=== PATIENT | female | born 1970 | race Caucasian/White ===

== ENCOUNTER 2017-07-26 07:33 | Day surgery (SDC) | payer OTHER ==
[~2017-07-26] VITALS: Ht 175.3 cm; Wt 79.0 kg
[2017-07-26] MEDS ORDERED: IOHEXOL 350 MG/ML 50 ML BTL (for Cath Lab) OTHER ONE (07:34)
[2017-07-26] MEDS ORDERED: LEVE500T8 PO (08:03)
[2017-07-26] MEDS ORDERED: PANT40TA3 PO (08:03)
[2017-07-26] MEDS ORDERED: LINA290C PO (08:03)
[2017-07-26] MEDS ORDERED: MULTTAB67 PO (08:03)
[2017-07-26] MEDS ORDERED: DULO1CAP3 PO (08:03)
[2017-07-26] MEDS ORDERED: DIVA500T PO (08:03)
[2017-07-26] MEDS ORDERED: AMLO5TAB2 PO (08:03)
[2017-07-26] MEDS ORDERED: HYDR-755 PO (08:03)
[2017-07-26] MEDS ORDERED: SPIR25TA PO (08:03)
[2017-07-26] MEDS ORDERED: UMEC1INH INH (08:03)
[2017-07-26] MEDS ORDERED: BUSP10TA PO (08:03)
[2017-07-26] MEDS ORDERED: METO25TA3 PO (08:03)
[2017-07-26] MEDS ORDERED: BACL10TA PO (08:03)
[2017-07-26] MEDS ORDERED: FLUO40CA PO (08:03)
[2017-07-26] MEDS ORDERED: GABA600T PO (08:03)
[2017-07-26] MEDS ORDERED: TRAZ50TA12 PO (08:03)
[2017-07-26 08:20] VITALS: BP 106/69; PULSE 67; RESP 18; TEMP 98.2; O2SAT 96
[2017-07-26 08:26] LABS: AUTOMATED NEUTROPHIL # 1.9 TH/MM3 (1.8-7.7); BASOPHIL % 0.4 % (0.0-2.0); EOSINOPHIL # 0.3 TH/MM3 (0-0.4); EOSINOPHIL % 4.6 % (0.0-4.0); HEMATOCRIT 39.7 % (35.0-46.0); HEMO FLAGS DIFF FINAL; LYMPH % 54.2 % (9.0-44.0); LYMPHOCYTE # 3.2 TH/MM3 (1.0-4.8); MEAN CELL VOLUME 93.2 FL (80.0-100.0); MEAN CORPUSCULAR HEMOGLOBIN 31.5 PG (27.0-34.0); MEAN CORPUSCULAR HGB CONC 33.8 % (32.0-36.0); MONO % 8.4 % (0.0-8.0); NEUT % 32.4 % (16.0-70.0); PLATELET COUNT 203 TH/MM3 (150-450); RED BLOOD COUNT 4.26 MIL/MM3 (4.00-5.30); RED CELL DISTRIBUTION WIDTH 13.3 % (11.6-17.2)
[2017-07-26 08:34] LABS: APTT (PATIENT) 28.2 SEC (24.3-30.1); PROTHROMBIN TIME - PATIENT 10.5 SEC (9.8-11.6)
[2017-07-26 08:38] LABS: BICARBONATE 30.7 MEQ/L (21.0-32.0)
[2017-07-26] MEDS ORDERED: HEPARIN-NS/PF INJ 1,000 ML ONE (10:43)
[2017-07-26] MEDS ORDERED: MIDAZOLAM HCL 2 MG/2 ML VIAL ONE (10:43)
--- NOTE | 2017-07-26 11:34 | CATHPROC ---
Patient Name: CANDIDO HAWTHORNE Study #: [id number] Initial MD: Hugh Bar Date of : 1970 Study Date: 07/26/2017 Cardiac Catheterization Report 07/26/2017 11:33:48 AM Financial #: [id number] 1 of 8 Patient Name: CANDIDO HAWTHORNE Study #: [id number] Initial MD: Hugh Bar Date of : 1970 Study Date: 07/26/2017 Entire Case Report Patient Information Patient Name CANDIDO HAWTHORNE Date of 1970 Age 47 years Financial # [id number] Gender F AlternateID Lab Number 3 Room Number DC09 Height (in) 69.0 Height (cm) 175.2 BSA 1.95 Weight (lbs) 173.8 Weight (kg) 79.0 Patient Address/Phone Number Home Address [facility] Home Phone Number [phone] [place] [phone] Study Information Study Number Admission Scheduled Start Study Start [id number] Jul 26 2017 7:33AM 07/26/2017 Jul 26 2017 10:29AM [place] [facility] Cardiac Catheterization Admit Source Facility Department Other [facility] - Registered Pharmacy Technician Physician and Clinical Staff Initial Hugh Clifford Experimental Technician Karie Michel ,BSN Recorder Michael Chase,RT(R) Maryamub Binta Garcia,JITENDRA TECH2 Procedures Performed Procedure Location (Site) Vessel Name Coronary Angiograms LCA Left Coronary Coronary Angiograms RCA Right Coronary 07/26/2017 11:33:48 AM Financial #: [id number] 2 of 8 Patient Name: CANDIDO HAWTHORNE Study #: [id number] Initial MD: Hugh Bar Date of : 1970 Study Date: 07/26/2017 Equipment Time Life Insurance Specialist Description Size Mfg Part Number Used/Scraped TRANSDUCER, TRUWAVE [id number] 10:52 NOLASCO POLLOCK * Used W/STOCKCOCK *[id number] INTRODUCER SET, 10:52 [employer] FR 5 [id number] *[id number] Used MICROPUNCTURE, STIFFENED [id number] *[id number] [id number] *[id number] 10:52 [employer] INDUSTRIES PACK, CCL CUSTOM * Used *[id number] 10:52 [employer] MEDICAL WIRE, 3MMJ .035 180CM 180CM Used *[id number] 10:52 NAM[employer] MANIFOLD, 4 PORT * Used *[id number] 10:52 [employer] OMNIPAQUE, 350 MG, 150ML 150ML [id number] Used [id number] 10:52 [employer]ET,WARM AIR CCL * Used *[id number] 10:52 TERUMO MEDICAL SHEATH, FR5 TERUMO (10CM) FR 5 Used *[id number] Insurance Information Insurance Payor Private Health Insurance Third Democrat Third Democrat Number HUMANA CHOICE PPO HUMCRPPO History: Risk Factors Family History of Hypertension Dyslipidemia Previous OH Previous Heart Failure Premature CAD Yes Yes Yes Yes No Prior Valve Prior PCI Prior CABG Surgery No No No Cerebrovascular Peripheral Artery Chronic Lung On Dialysis Diabetes Diabetes Therapy Disease Disease Disease No No No Yes Yes Oral 07/26/2017 11:33:48 AM Financial #: [id number] 3 of 8 Patient Name: CANDIDO HAWTHORNE Study #: [id number] Initial MD: Hugh Bar Date of : 1970 Study Date: 07/26/2017 History: Stress Tests Stress or Imaging Studies Performed Yes Standard Exercise Stress Test No Stress Echo No Stress Test SPECT Stress Test SPECT Result Stress Test SPECT Ischemia Risk/Extent Yes Positive Low Stress Test CMR No Cardiac CTA Coronary Calcium Score No No History: Other Current Smoker Method Packs a Day Years Used Pack Years Yes Cigarettes 1 3 3 Labs Hgb (g/dl) Hct (%) WBC (l/cumm) Platelets (thousands) 11.60-17.00 35.00-51.00 4.00-11.00 150.00-450.00 13.4 39.7 6 203 Glucose (mg/dl) BUN (mg/dl) Creatinine (mg/dl) BUN:Creatinine (1:x) 74.00-106.00 7.00-18.00 0.50-1.30 10.00-20.00 94 10 0.8 12.5 Na (meq/l) K (meq/l) 136.00-145.00 3.50-5.10 140 4 INR (PTT:PT) 0.90-1.10 1 CPK-MB (ng/ML) 0.50-3.60 Not Drawn Medication 07/26/2017 11:33:48 AM Financial #: [id number] 4 of 8 Patient Name: CANDIDO HAWTHORNE Study #: [id number] Initial MD: Hugh Bar Date of : 1970 Study Date: 07/26 Medication Total Dose (Bolus/Oral) Medication Total Dosage/Unit 1% XYLOCAINE 10 mL FENTANYL 25 mcg VERSED 0.5 mg Medications (Bolus/Oral) Medication Time Given Dosage/Unit Administered By Reason VERSED 07/26/2017 11:02:45 AM 0.5 mg Karie Michel 0.5 mg VERSED given in lab by Karie Michel BSN in Left Antecubital via Peripheral IV. Ordered by Hugh Bar FENTANYL 07/26/2017 11:03:59 AM 25 mcg Karie Michel 25 mcg FENTANYL given in lab by Karie Michel BSN in Left Antecubital via Peripheral IV. Order ed by Hugh Bar 1% XYLOCAINE 07/26/2017 11:07:32 AM 10 mL Hugh Bar 10 mL 1% XYLOCAINE given in lab by Hugh Bar in Right Groin via Subcutaneous. Ordered by Hugh Pierre Medication (Drip) Medication Time Given Dosage/Unit Concentration/Unit Diluent (ml) Solution IV Solutions 07/26/2017 10:42:49 AM 0 mL (IV) 500 NaCl .9 Patient arrived on IV Solutions given by Hugh Bar in Left Antecubital via Peripheral IV. P ump/Drip Flow = 20 ml/hr using NaCl .9. Ordered by Hugh Bar Initial Case Assessment Cardiovascular HR Rhythm Chest Pain 65 sr 0 Edema Present Skin color Skin None Normal Warm Dry Circulatory - Right Pulses Dorsalis Pedis Femoral 2 2 Scale (0,1,2,3,4,d) Circulatory - Left Pulses Dorsalis Pedis Femoral 2 2 Scale (0,1,2,3,4,d) Neurological State Oriented to time-place- Alert Moves all extremities person Respiration - General Respiration Rate SpO2 (%) O2 (lpm) (B/min) 18 98 0 07/26/2017 11:33:48 AM Financial #: [id number] 5 of 8 Patient Name: CANDIDO HAWTHORNE Study #: [id number] Initial MD: Hugh Bar Date of : 1970 Study Date: 07/26/2017 Vitals Summary Pain Time HR NIBP SpO2 Resp Temp EtCO2 Apnea Daniel Wilkerson Comment Level 10:44:03 65 125/78 97.0 9 2 10:49:05 68 136/74 97.0 9 2 10:54:06 69 122/79 97.0 10 2 10:59:05 69 119/73 94.0 10 2 11:04:06 70 116/65 96.0 14 2 11:09:05 64 122/75 96.0 22 2 11:14:06 64 115/75 96.0 9 2 11:19:03 66 116/69 96.0 12 2 11:24:04 67 118/68 95.0 23 2 Chronological Log Time Study Chronological Log 10:37:37 Patient arrived via Bed. 10:37:39 Patient Name, D.O.B, / Armband Verified By R.N. 10:37:40 Consent signed by the physician and the patient and verified by the Registered Pharmacy Technician staff. 10:37:42 Pre-op and post- op instructions given; patient acknowledges understanding of instructions. 10:38:13 Verbal Stimulation=2 Physical Stimulation=2 Airway=2 Respiration=2 TOTAL=8. (0=absent, 1=li mited, 2=present) 10:38:23 Presedation assessment performed by Registered Pharmacy Technician RN. 10:38:25 Patient has been NPO for More than 6Hrs. 10:42:01 Skin Breakdown-none present per patient. 10:42:31 A # 20 IV was noted in the Antecubital (left). Grade = 0 Patient arrived on IV Solutions given by Hugh Bar in Left Antecubital via Peripheral IV. Pump/Drip Flow = 20 10:42:49 ml/hr using NaCl .9. Ordered by Hugh Bar. 10:43:03 History and physical on the chart or being dictated. Assessment: Initial Case, HR=65 BPM, Rhythm=sr, Chest Pain=0, Edema=None, Color=Normal, Skin = Warm, Dry Right Pulses: Inocente Ped=2, Femoral=2 10:43:06 Left Pulses: Inocente Ped=2, Femoral=2 Neurological: State=Alert, Ox3, ONEAL Respiration: Resp=18 B/min, SpO2=98 %, O2=0 lpm Vitals capture started with the following parameters, Patient=Adult, Interval=5 min, Initial Pr tcpcrl=363 mmHg, 10:43:28 Deflation Rate=5 mmHg, Cuff placed on Left Arm 10:44:03 HR=65 bpm, ZFPN=057/78 mmhg, SpO2=97.0 %, Resp=9 B/min, Wilkerson=2 10:44:21 Bilateral groins prepped with 2% chlorhexidine, and draped after a 3 minute waiting time. 10:44:53 Reference ECG taken 10:49:05 HR=68 bpm, BVAJ=622/74 mmhg, SpO2=97.0 %, Resp=9 B/min, Wilkerson=2 10:54:06 HR=69 bpm, RUQC=629/79 mmhg, SpO2=97.0 %, Resp=10 B/min, Wilkerson=2 10:54:15 Pressure channel 1 zeroed. 10:55:19 paged 07/26/2017 11:33:48 AM Financial #: [id number] 6 of 8 Patient Name: CANDIDO HAWTHORNE Study #: [id number] Initial MD: Hugh Bar Date of : 1970 Study Date: 07/26/2017 10:59:05 HR=69 bpm, FCBX=789/73 mmhg, SpO2=94.0 %, Resp=10 B/min, Wilkerson=2 11:01:24 arrived. 0.5 mg VERSED given in lab by Karie Michel BSN in Left Antecubital via Peripheral IV. O rdered by Yosvany, 11:02:45 Hugh G. 25 mcg FENTANYL given in lab by Karie Michel BSN in Left Antecubital via Peripheral IV. Ordered by Yosvany, 11:03:59 Hugh Pineda 11:04:06 HR=70 bpm, UCAO=107/65 mmhg, SpO2=96.0 %, Resp=14 B/min, Wilkerson=2 Time Out. Correct patient, correct procedure, correct physician, power injector not loaded with contrast with surgical 11:07:01 team present. Time Out Concurred by MD and individual staff in procedure. Not loaded at this ti me. 11:07:15 Presedation re-assessment performed by Registered Pharmacy Technician RN. 11::17 Case Start 11::19 Verbal Stimulation=2 Physical Stimulation=2 Airway=2 Respiration=2 TOTAL=8. (0=absent, 1=li mited, 2=present) 10 mL 1% XYLOCAINE given in lab by Hugh Bar in Right Groin via Subcutaneous. Ordered by Yosvany, 11:07:32 Hugh Pineda 11:09:05 HR=64 bpm, UAOE=984/75 mmhg, SpO2=96.0 %, Resp=22 B/min, Wilkerson=2 11:09:56 Access site was Right Femoral Artery. A INTRODUCER SET, MICROPUNCTURE, STIFFENED FR 5 was advanced into the Fem Art (right) using the 11:10:12 Percutaneous technique. A SHEATH, FR5 TERUMO (10CM) FR 5 was exchanged in the Fem Art (right). This was necessary in or gerardo to 11:10:31 accomodate a larger catheter. Recorded Pressure: Ao, HR=66, Condition=Condition 1 11:11:04 (Aorta) Ao 126/64/89 11:11:37 An injection in the Groin (right) was made through the SHEATH, FR5 TERUMO (10CM) FR 5. A JR 4.0 INFINITI CATHETER FR 5 was advanced over a wire. OMNIPAQUE, 350 MG, 150ML 150ML was us ed for 11:12:30 injections. Recorded Pressure: LV, HR=67, Condition=Condition 1 11:13:15 (Left Ventricle) LV 120/5/16 Recorded Pressure: LV, Ao, HR=66, Condition=Condition 1 11:13:31 (Left Ventricle) LV 121/4/17, (Aorta) Ao 122/67/91 11:13:55 The RCA was injected and visualized at various angles. OMNIPAQUE, 350 MG, 150ML 150ML used . 11:14:06 HR=64 bpm, PVJJ=493/75 mmhg, SpO2=96.0 %, Resp=9 B/min, Wilkerson=2 After removing the current catheter a JL 4.0 INFINITI CATHETER FR 5 was advanced over a WIRE, 3 MMJ .035 180CM 11:15:25 180CM. 11:15:53 The LCA was injected and visualized at various angles. OMNIPAQUE, 350 MG, 150ML 150ML used . 11:19:03 HR=66 bpm, FHZV=235/69 mmhg, SpO2=96.0 %, Resp=12 B/min, Wilkerson=2 11:21:11 Catheter was removed 11:21:14 Case End 11:24:04 HR=67 bpm, KTWK=297/68 mmhg, SpO2=95.0 %, Resp=23 B/min, Wilkerson=2 11:28:57 Vitals capture stopped. Recorded Pressures: Condition 1 07/26/2017 11:33:48 AM Financial #: [id number] Patient Name: CANDIDO HAWTHORNE Study #: [id number] Initial MD: Hugh Bar Date of : 1970 Study Date: 07/26/2017 Time Chamber Pressure Manual Override (*) 11:11:04 Ao 126/64/89 s/d/m 11:13:15 LV 120/5/16 s/bd/ed 11:13:31 LV 121/4/17 s/bd/ed 11:13:31 Ao 122/67/91 s/d/m End Study - Contrast Media Used In Study Contrast Total Opened (mL) Total Used (mL) Total Wasted (mL) Omnipaque 30 30 0 End Study - Maximum Contrast Load Max Contrast Load (mL) 493.8 End Study - Radiation Exposure Fluoro Time (minutes) 1.7 End Study - Patient Disposition Complications Transferred To Telemetry Bed 07/26/2017 11:33:48 AM Financial #: [id number]
[2017-07-26] MEDS ORDERED: MISC INFORMATION XX ONE (11:45)
[2017-07-26] MEDS ORDERED: ATROPINE SULFATE 1 MG/ML VIAL IV PUSH PRN (11:45)
[2017-07-26] MEDS ORDERED: ONDANSETRON HCL 4 MG/2 ML VIAL IV PUSH PRN (11:45)
--- NOTE | 2017-07-26 12:49 | MA ---
cc: HUGH VELA DO DATE OF PROCEDURE July 26, 2017 PROCEDURE Left heart catheterization, coronary angiogram. Moderate sedation, 20 minutes PREPROCEDURE DIAGNOSIS Unstable angina on medications, normal nuclear. POSTPROCEDURE DIAGNOSIS No significant coronary artery disease. 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 MEDICATIONS 1. Versed 0.5 mg. 2. Fentanyl 25 mcg. CONTRAST 30 cc. FLUOROSCOPY 1.7 minutes MODERATE SEDATION 20 minutes. ESTIMATED BLOOD LOSS 10 cc. PROCEDURAL SUMMARY Ms. Sung is a pleasant 47-year-old female who sees my partner Dr. Reyes in the office and because of her typical anginal symptoms on multiple antianginals she was recommended cardiac catheterization. The risks, benefits and alternatives were explained her and she consented as such. She was brought to lab and prepped in the usual sterile fashion. The right femoral artery was accessed using a modified Seldinger technique and placement of a 5-Danish sheath. This was easily aspirated and flushed. The JR-4 was advanced over a J-wire to the ascending aorta and across the aortic valve for measurement of left ventricular pressures. This was pulled back across the aortic valve showing no significant gradient of aortic stenosis. JR-4 was used for selective angiography of the right coronary artery system. This was exchanged out for a JL-4 which was used for selective angiography of the left coronary artery system. JL-4 was removed over a J-wire. The sheath was sutured in place with the plan to remove in the DOC Unit and pressure held for hemostasis. 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 FINDINGS LEFT MAIN: Normal-sized vessel with no significant disease and adequate reflux. It trifurcates into an LAD, ramus and circumflex. LAD: Normal-sized vessel with mild luminal irregularities in the midportion but no significant disease throughout. It gives off multiple small diagonals with no significant disease. RAMUS: Overall small vessel which supplies a small area of myocardium and no significant disease. LEFT CIRCUMFLEX: Mild luminal irregularities throughout the midportion. It gives off two obtuse marginals with no significant disease. Of note, the first obtuse marginal does have what appears to be myocardial bridging in the proximal to midportion. RCA: Mild luminal irregularities but no significant disease. It is a dominant vessel and supplies a PDA as well as a PLV with no significant disease. LVEDP: 17. IMPRESSIONS 1. Chest pain on multiple antianginals. 1. History of nuclear stress test which was normal. 2. 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 RECOMMENDATIONS 1. 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 2. If she does have room with her heart rate or blood pressure these medications can be increased to try to decrease the overall effects of her myocardial bridging. 3. She will follow up with Dr. Reyes upon discharge. Thank you for allowing me to see Manisha Sung. If there are any questions, please do not hesitate to call. Hugh Vela DO VGP/SSB /12:22 PM /12:35 PM
--- NOTE | 2017-07-27 14:25 | EKG ---
Date Performed: 07/26/2017 Time Performed: 08:35:52 PTAGE: 47 years EKG: Sinus rhythm . Anterolateral T wave changes may be due to myocardial ischemia Abnormal ECG NO PREVIOUS TRACING DOCTOR: Lolis Matthews Interpretating Date/Time 07/27/2017 14:23:04
[2017-07-27] MEDS ORDERED: CODE30TA2 PO (21:15)
== END 2017-07-26 17:26 | disposition home or self-care (01) ==
LOC: HDOC 07:33 → HDIC 07:34 → HDOC 17:26
PROVIDERS: ATTEND Nuclear Medicine Nuclear Cardiology
DX: I25.110 Atherosclerotic heart disease of native coronary artery with unstable angina pectoris (principal); E11.9 Type 2 diabetes mellitus without complications; I11.9 Hypertensive heart disease without heart failure; G47.33 Obstructive sleep apnea (adult) (pediatric); E78.5 Hyperlipidemia, unspecified; J44.9 Chronic obstructive pulmonary disease, unspecified; I25.2 Old myocardial infarction; M81.0 Age-related osteoporosis without current pathological fracture; R07.89 Other chest pain; M54.9 Dorsalgia, unspecified; Z72.0 Tobacco use; R94.31 Abnormal electrocardiogram [ECG] [EKG]; G40.909 Epilepsy, unspecified, not intractable, without status epilepticus; M06.9 Rheumatoid arthritis, unspecified; Z01.818 Encounter for other preprocedural examination
CPT/HCPCS: 80048; 84702; 85025; 85610; 85730; 93005; 93458; 99152; 99153; C1769; C1893; J1644; J2250; J3010; Q9967

== ENCOUNTER 2017-07-27 19:16 | Emergency (ER) | payer OTHER ==
[~2017-07-27] VITALS: Ht 165.1 cm; Wt 75.0 kg
[~2017-07-27 19:16] MED LIST: AMLO5TAB2 PO; BACL10TA PO; BUSP10TA PO; DIVA500T PO; DULO1CAP3 PO; FLUO40CA PO; GABA600T PO; HYDR-755 PO; LEVE500T8 PO; LINA290C PO; METO25TA3 PO; MULTTAB67 PO; PANT40TA3 PO; SPIR25TA PO; TRAZ50TA12 PO; UMEC1INH INH
[2017-07-27 19:18] VITALS: BP 103/60; PULSE 85; RESP 18; TEMP 99.2; O2SAT 97
--- NOTE | 2017-07-27 19:35 | PD ---
HPI Chief Complaint: Pain: Acute or Chronic Time Seen by Provider: 19:29 Travel History International Travel<30 days: No Contact w/Intl Traveler<30days: No Traveled to known affect area: No History of Present Illness HPI PATIENT HAD A CATH DONE YESTERDAY BY DR VELA, AND TODAY SHE RETURNS C/O RIGHT GROIN AREA PAIN, 8/10, WORSENED BY ACTIVITY AND WALKING...DENIES ANY BLEEDING OR DISCHARGE. ALSO DENIES ANY FEVER/N/V/D ASSOCIATED WITH SYMPTOMS...DENIES ANY ALLEVIATING/AGGRAVATING FACTORS PFSH Past Medical History Cancer: No Chest Pain: No Diabetes: Yes Gastrointestinal Disorders: No Glaucoma: No Hepatitis: No Hiatal Hernia: No Hypertension: No Integumentary: No Thyroid Disease: No Social History Tobacco Use: No Allergies-Medications (Allergen,Severity, Reaction): Coded Allergies: No Known Allergies (Unverified , 07/27/17) Reported Meds & Prescriptions Reported Meds & Active Scripts Active Codeine-Acetaminophen 30-300 mg Tab 1 Tab PO Q4H PRN Reported Trazodone (Trazodone HCl) 50 Mg Tab 50 Mg PO HS Spironolactone 25 Mg Tab 25 Mg PO DAILY Pantoprazole (Pantoprazole Sodium) 40 Mg Tab 40 Mg PO DAILY Multiple Vitamin 1 Tab 1 Tab PO DAILY Metoprolol Tartrate 25 Mg Tab 25 Mg PO BID Linzess (Linaclotide) 290 Mcg Cap 290 Mcg PO DAILY Levetiracetam 500 Mg Tab 500 Mg PO BID Incruse Ellipta Inh (Umeclidinium [place]rie Inh) 0.0625 Mg/Act Inh 62.5 Mcg INH DAILY Hydroxyzine HCl 10 Mg Tab 10 Mg PO TID PRN Gabapentin 600 Mg Tab 600 Mg PO TID Fluoxetine (Fluoxetine HCl) 40 Mg Cap 40 Cap PO DAILY Duloxetine DR (Duloxetine HCl) 60 Mg Capdr 60 Mg PO DAILY Divalproex DR (Divalproex Sodium) 500 Mg Tabdr 500 Mg PO BID Buspirone (Buspirone HCl) 10 Mg Tab 10 Mg PO TID Baclofen 10 Mg Tab 10 Mg PO Q8HR Amlodipine (Amlodipine Besylate) 5 Mg Tab 5 Mg PO DAILY Review of Systems General / Constitutional: No: Fever Eyes: No: Visual changes HENT: No: Headaches Cardiovascular: No: Chest Pain or Discomfort Respiratory: No: Shortness of Breath Gastrointestinal: No: Abdominal Pain Genitourinary: No: Dysuria Musculoskeletal: Positive: Pain Skin: No Rash Neurologic: No: Weakness Psychiatric: No: Depression Endocrine: No: Polydipsia Hematologic/Lymphatic: No: Easy Bruising Physical Exam Narrative GENERAL: SKIN: Warm and dry. HEAD: Atraumatic. Normocephalic. EYES: Pupils equal and round. No scleral icterus. No injection or drainage. ENT: No nasal bleeding or discharge. Mucous membranes pink and moist. NECK: Trachea midline. No JVD. CARDIOVASCULAR: Regular rate and rhythm. RESPIRATORY: No accessory muscle use. Clear to auscultation. Breath sounds equal bilaterally. GASTROINTESTINAL: Abdomen soft, non-tender, nondistended. Hepatic and splenic margins not palpable. MUSCULOSKELETAL: Extremities without clubbing, cyanosis, or edema. No obvious deformities. 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 No obvious cranial nerve deficits. Motor grossly within normal limits. Five out of 5 muscle strength in the arms and legs. Normal speech. PSYCHIATRIC: Appropriate mood and affect; insight and judgment normal. Data Data Last Documented VS Vital Signs Date Time Temp Pulse Resp B/P (MAP) Pulse Ox O2 Delivery O2 Flow Rate FiO2 07/27/17 19:18 99.2 85 18 103/60 (74) 97 Room Air Orders Orders Complete Blood Count With Diff (07/27/17 19:29) Basic Metabolic Panel (Bmp) (07/27/17 19:29) Prothrombin Time / Inr (Pt) (07/27/17 19:29) Act Partial Throm Time (Ptt) (07/27/17 19:29) Us Leg Hematoma/Pseudoaneurysm (07/27/17 ) Ondansetron Inj (Zofran Inj) (07/27/17 19:45) Hydromorphone Pf Inj (Dilaudid Pf Inj) (07/27/17 19:45) Labs Laboratory Tests Test 07/27/17 19:35 White Blood Count 5.6 TH/MM3 Red Blood Count 4.47 MIL/MM3 Hemoglobin 14.2 GM/DL Hematocrit 41.8 % Mean Corpuscular Volume 93.6 FL Mean Corpuscular Hemoglobin 31.8 PG Mean Corpuscular Hemoglobin Concent 34.0 % Red Cell Distribution Width 13.4 % Platelet Count 213 TH/MM3 Mean Platelet Volume 8.0 FL Neutrophils (%) (Auto) 33.8 % Lymphocytes (%) (Auto) 53.6 % Monocytes (%) (Auto) 7.0 % Eosinophils (%) (Auto) 5.1 % Basophils (%) (Auto) 0.5 % Neutrophils # (Auto) 1.9 TH/MM3 Lymphocytes # (Auto) 3.0 TH/MM3 Monocytes # (Auto) 0.4 TH/MM3 Eosinophils # (Auto) 0.3 TH/MM3 Basophils # (Auto) 0.0 TH/MM3 CBC Comment DIFF FINAL Differential Comment Prothrombin Time 10.5 SEC Prothromb Time International Ratio 1.0 RATIO Activated Partial Thromboplast Time 29.6 SEC Blood Urea Nitrogen 11 MG/DL Creatinine 1.00 MG/DL Random Glucose 106 MG/DL Calcium Level 8.8 MG/DL Sodium Level 138 MEQ/L Potassium Level 3.6 MEQ/L Chloride Level 100 MEQ/L Carbon Dioxide Level 28.9 MEQ/L Anion Gap 9 MEQ/L Estimat Glomerular Filtration Rate 60 ML/MIN [facility] Medical Decision Making Medical Screen Exam Complete: Yes Emergency Medical Condition: Yes Medical Record Reviewed: Yes Differential Diagnosis PSEUDO ANEURYSM V CONTUSION V HEMATOMA V ANEMIA V RENAL INSUFF Narrative Course CBC, CMP AND COAGS WERE ALL WNL...ADDITIIONALLY THE ULTRASOUND WAS NEG FOR PSEUDOANEURYSM AND SHOWED AN ENLARGED LYMPH NODE ADJACENT TO FEMORAL ARTERY, NO PULSATILE MASS NOTED Diagnosis Primary Impression: Postprocedural pain of extremity following cardiac catheterization Patient Instructions: General Instructions, Heart Catheterization (GEN) Scripts Codeine-Acetaminophen (Codeine-Acetaminophen) 30-300 mg Tab 1 TAB PO Q4H Y for PAIN, #10 TAB 0 Refills Prov: Harshad Carroll MD 07/27/17 Disposition: 01 DISCHARGE HOME Condition: Stable Harshad Carroll MD Jul 27, 2017 19:35
[2017-07-27] MEDS ORDERED: HYDROmorphone HCL PF 1 MG/ML VIAL IV PUSH ONE (19:45)
[2017-07-27] MEDS ORDERED: ONDANSETRON HCL 4 MG/2 ML VIAL IV PUSH ONE (19:45)
[2017-07-27 19:57] LABS: AUTOMATED NEUTROPHIL # 1.9 TH/MM3 (1.8-7.7); BASOPHIL % 0.5 % (0.0-2.0); EOSINOPHIL # 0.3 TH/MM3 (0-0.4); EOSINOPHIL % 5.1 % (0.0-4.0); HEMATOCRIT 41.8 % (35.0-46.0); HEMO FLAGS DIFF FINAL; LYMPH % 53.6 % (9.0-44.0); MEAN CELL VOLUME 93.6 FL (80.0-100.0); MEAN CORPUSCULAR HEMOGLOBIN 31.8 PG (27.0-34.0); NEUT % 33.8 % (16.0-70.0); PLATELET COUNT 213 TH/MM3 (150-450); RED BLOOD COUNT 4.47 MIL/MM3 (4.00-5.30); RED CELL DISTRIBUTION WIDTH 13.4 % (11.6-17.2); WHITE BLOOD COUNT 5.6 TH/MM3 (4.0-11.0)
[2017-07-27 20:09] LABS: APTT (PATIENT) 29.6 SEC (24.3-30.1); PROTHROMBIN TIME - PATIENT 10.5 SEC (9.8-11.6)
[2017-07-27 20:21] LABS: BICARBONATE 28.9 MEQ/L (21.0-32.0); POTASSIUM 3.6 MEQ/L (3.5-5.1)
--- NOTE | 2017-07-27 20:58 | RADRPT ---
EXAM DATE/TIME: 07/27/2017 20:00 [place] COMPARISON: No previous studies available for comparison. INDICATIONS : Post cath. MEDICAL HISTORY : Hypertension. Ovarian cysts. Diabetes. Depression. SURGICAL HISTORY : Appendectomy. Cholecystectomy. Hysterectomy. Ear surgery. Cardiac catheterization. ENCOUNTER: Initial ACUITY: 1 day PAIN SCORE: 4/10 LOCATION: Right groin. AREA EVALUATED: Right groin. FINDINGS: Multiple sonographic images of the right groin demonstrate no definite pseudoaneurysm. There is a sma ll ovoid area of decreased echogenicity adjacent to the right femoral artery which either represents a tiny hematoma or possibly a mildly enlarged right inguinal lymph node measuring 2.6 x 0.9 x 1.4 cm. CONCLUSION: 1. No evidence of pseudoaneurysm. 2. Small ovoid area of decreased echogenicity adjacent to the right femoral artery which either repre sents a tiny hematoma or possibly a mildly enlarged right inguinal lymph node measuring 2.6 x 0.9 x 1 .4 cm. Fredy Merritt MD on July 27, 2017 at 20:53 Board Certified Radiologist. This report was verified electronically.
[2017-07-27] MEDS ORDERED: CODE30TA2 PO (21:15)
== END 2017-07-27 21:43 | disposition home or self-care (01) ==
LOC: NEPD 19:16
DX: G89.18 Other acute postprocedural pain (principal); R59.9 Enlarged lymph nodes, unspecified; R10.2 Pelvic and perineal pain; E11.9 Type 2 diabetes mellitus without complications; Z79.899 Other long term (current) drug therapy
CPT/HCPCS: 80048; 85025; 85610; 85730; 93926; 96374; 96375; 99285; J1170; J2405

== ENCOUNTER 2017-08-07 12:50 | Emergency (ER) | payer OTHER ==
[~2017-08-07] VITALS: Ht 165.1 cm; Wt 75.0 kg
[~2017-08-07 12:50] MED LIST changes: +CODE30TA2 PO
[2017-08-07 12:54] VITALS: BP 104/60; PULSE 59; RESP 12; O2SAT 97
[2017-08-07 13:14] VITALS: BP 113/55; PULSE 58; RESP 17
[2017-08-07] MEDS ORDERED: SODIUM CHLOR 0.9% 1000 ML INJ 1,000 ML IV ONE (13:22)
--- NOTE | 2017-08-07 13:24 | PD ---
HPI Chief Complaint: Seizure Time Seen by Provider: 13:02 Travel History International Travel<30 days: No Contact w/Intl Traveler<30days: No Traveled to known affect area: No History of Present Illness HPI 47-year-old female presents to the emergency department. History is obtained from her significant other at bedside and she tells me she does not know why she is here. Patient's significant other states that she had possibly 4 seizures this morning. He states that they would last approximately a minute each. She would be okay in between seizures and they would have another seizure. He states that she did not hit her head during any of these episodes. She does have a history of seizures. She states that she is on Keppra, Depakote and another antiseizure medication that she cannot remember. The patient states her last seizure prior to today was "month ago". Patient states her neurologist is Dr. Trevizo. 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 Reyes. She recently had a cardiac catheterization done by Dr. Bar. She does state she had a trip and fall proximally 2 days ago. She states that she has low back pain from this. She had an outpatient x- ray was diagnosed with a contusion. She denies any head injury or LOC during a slip and fall. No chest pain or shortness of breath. No abdominal pain. Nausea, vomiting, diarrhea. Patient is able to ambulate to bathroom without difficulty. Moderate severity. No exacerbating or alleviating factors. Patient denies any incontinence or tongue biting. PFSH Past Medical History Depression: Yes Cancer: No Cardiac Catheterization: Yes Cardiovascular Problems: Yes ([place]) Chest Pain: No Diabetes: Yes Gastrointestinal Disorders: No Glaucoma: No Hepatitis: No Hiatal Hernia: No Hypertension: Yes Respiratory: Yes Integumentary: No Thyroid Disease: No Ectopic : Yes Ovarian Cysts: Yes Past Surgical History Appendectomy: Yes Cholecystectomy: Yes Ear Surgery: Yes Hysterectomy: Yes Social History Alcohol Use: Yes Tobacco Use: No Substance Use: No Allergies-Medications (Allergen,Severity, Reaction): Coded Allergies: No Known Allergies (Unverified , 07/27/17) Reported Meds & Prescriptions Reported Meds & Active Scripts Active Codeine-Acetaminophen 30-300 mg Tab 1 Tab PO Q4H PRN Reported Trazodone (Trazodone HCl) 50 Mg Tab 50 Mg PO HS Spironolactone 25 Mg Tab 25 Mg PO DAILY Pantoprazole (Pantoprazole Sodium) 40 Mg Tab 40 Mg PO DAILY Multiple Vitamin 1 Tab 1 Tab PO DAILY Metoprolol Tartrate 25 Mg Tab 25 Mg PO BID Linzess (Linaclotide) 290 Mcg Cap 290 Mcg PO DAILY Levetiracetam 500 Mg Tab 500 Mg PO BID Incruse Ellipta Inh (Umeclidinium [place] Inh) 0.0625 Mg/Act Inh 62.5 Mcg INH DAILY Hydroxyzine HCl 10 Mg Tab 10 Mg PO TID PRN Gabapentin 600 Mg Tab 600 Mg PO TID Fluoxetine (Fluoxetine HCl) 40 Mg Cap 40 Cap PO DAILY Duloxetine DR (Duloxetine HCl) 60 Mg Capdr 60 Mg PO DAILY Divalproex DR (Divalproex Sodium) 500 Mg Tabdr 500 Mg PO BID Buspirone (Buspirone HCl) 10 Mg Tab 10 Mg PO TID Baclofen 10 Mg Tab 10 Mg PO Q8HR Amlodipine (Amlodipine Besylate) 5 Mg Tab 5 Mg PO DAILY Review of Systems Except as stated in HPI: all other systems reviewed are Neg Physical Exam Narrative GENERAL: Well-nourished, well-developed female patient, afebrile. Patient is ambulatory. SKIN: Focused skin assessment warm/dry. HEAD: Normocephalic. Atraumatic. EYES: No scleral icterus. No injection or drainage. NECK: Supple, trachea midline. No JVD or lymphadenopathy. CARDIOVASCULAR: Regular rate and rhythm without murmurs, gallops, or rubs. RESPIRATORY: Breath sounds equal bilaterally. No accessory muscle use. Lungs sounds are clear to auscultation. GASTROINTESTINAL: Abdomen soft, non-tender, nondistended. MUSCULOSKELETAL: No cyanosis, or edema. BACK: Nontender without obvious deformity. No CVA tenderness. Data Data Last Documented VS Vital Signs Date Time Temp Pulse Resp B/P (MAP) Pulse Ox O2 Delivery O2 Flow Rate FiO2 08/07/17 13:47 98.5 08/07/17 13:14 58 17 08/07/17 12:54 97 Orders Orders Complete Blood Count With Diff (08/07/17 13:22) Drug Screen, Random Urine (08/07/17 13:22) Electrocardiogram (08/07/17 ) Blood Glucose (08/07/17 13:22) Ecg Monitoring (08/07/17 13:22) Iv Access Insert/Monitor (08/07/17 13:22) Oximetry (08/07/17 13:22) Comprehensive Metabolic Panel (08/07/17 13:22) Sodium Chlor 0.9% 1000 Ml Inj (Ns 1000 M (08/07/17 13:22) Sodium Chloride 0.9% Flush (Ns Flush) (08/07/17 13:30) Ua Includes Microscopic (08/07/17 13:22) Magnesium (Mg) (08/07/17 13:22) Valproic Acid (Depakene) (08/07/17 13:26) Ketorolac Inj (Toradol Inj) (08/07/17 13:45) Ct Brain W/O Iv Contrast(Rout) (08/07/17 ) Labs Laboratory Tests Test 08/07/17 13:35 08/07/17 15:52 White Blood Count 7.0 TH/MM3 Red Blood Count 4.19 MIL/MM3 Hemoglobin 13.5 GM/DL Hematocrit 39.5 % Mean Corpuscular Volume 94.3 FL Mean Corpuscular Hemoglobin 32.1 PG Mean Corpuscular Hemoglobin Concent 34.1 % Red Cell Distribution Width 13.5 % Platelet Count 231 TH/MM3 Mean Platelet Volume 8.3 FL Neutrophils (%) (Auto) 39.7 % Lymphocytes (%) (Auto) 47.9 % Monocytes (%) (Auto) 7.1 % Eosinophils (%) (Auto) 5.0 % Basophils (%) (Auto) 0.3 % Neutrophils # (Auto) 2.8 TH/MM3 Lymphocytes # (Auto) 3.3 TH/MM3 Monocytes # (Auto) 0.5 TH/MM3 Eosinophils # (Auto) 0.3 TH/MM3 Basophils # (Auto) 0.0 TH/MM3 CBC Comment DIFF FINAL Differential Comment Blood Urea Nitrogen 6 MG/DL Creatinine 0.85 MG/DL Random Glucose 84 MG/DL Total Protein 6.9 GM/DL Albumin 3.6 GM/DL Calcium Level 8.6 MG/DL Magnesium Level 2.1 MG/DL Alkaline Phosphatase 47 U/L Aspartate Amino Transf (AST/SGOT) 16 U/L Alanine Aminotransferase (ALT/SGPT) 20 U/L Total Bilirubin 0.3 MG/DL Sodium Level 143 MEQ/L Potassium Level 4.2 MEQ/L Chloride Level 109 MEQ/L Carbon Dioxide Level 28.1 MEQ/L Anion Gap 6 MEQ/L Estimat Glomerular Filtration Rate 72 ML/MIN Valproic Acid (Depakene) Level 77 MCG/ML Urine Color LIGHT-YELLOW Urine Turbidity CLEAR Urine pH 7.0 Urine Specific [place] 1.003 Urine Protein NEG mg/dL Urine Glucose (UA) NEG mg/dL Urine Ketones NEG mg/dL Urine Occult Blood NEG Urine Nitrite NEG Urine Bilirubin NEG Urine Urobilinogen LESS THAN 2.0 MG/DL Urine Leukocyte Esterase NEG Urine WBC 1 /hpf Urine Squamous Epithelial Cells <1 /hpf MDM Medical Decision Making Medical Screen Exam Complete: Yes Emergency Medical Condition: Yes Medical Record Reviewed: Yes Interpretation(s) Last Impressions Head CT 08/07/17 0000 Signed Impressions: Service Date/Time: Wednesday, August 07, 2017 15:06 - CONCLUSION: 1. No acute intracranial abnormality. Tommy Chen MD Differential Diagnosis recurrent seizures versus electrolyte abnormality versus intracranial abnormality Narrative Course 47 year old female presents to the emergency department for seizures with history of seizures. EKG, CBC, CMP, Magnesium, UA, UDS, Depakote level are ordered and pending. Patient is given NS [address] of the brain is ordered and pending. EKG shows SR, HR 63. CBC shows no acute abnormality. CMP shows no acute abnormality. Magnesium is 2.1. UA is negative. Depakote level is 77. CT of the brain shows no acute intracranial abnormality. Patient's neurologist, Dr. Newton, is paged. I spoke to Dr. Do, who recommends the patient increase her Keppra to either 750 mg twice daily or 500 mg the morning thousand at night. Patient requests a new prescription for 750 twice daily. This will be given. She is instructed to follow-up with her neurologist on Wednesday. The patient is requesting pain medication for her back. She states that she is started on anti-inflammatories and muscle relaxants. I discussed the no give her a different anti-inflammatory , but Narcotics are not indicated. She'll be discharged with a prescription for diclofenac as well. Diagnosis Primary Impression: Seizure disorder Referrals: Ko Trevizo MD 2 days Primary Care Physician Patient Instructions: General Instructions, Recurrent Seizures in Adults (ED) Additional Instructions: Increase your Keppra to 750 mg twice daily. Follow-up to Dr. Newton. Take diclofenac as started as needed for pain. Do not take with other anti- inflammatories including ibuprofen and naproxen. Follow-up with your primary care physician. Return to the emergency department for any acute worsening of symptoms. Med/Other Pt SpecificInfo: Prescription(s) given Scripts Diclofenac Potassium (Diclofenac Potassium) 50 Mg Tab 50 MG PO TID Y for PAIN SCALE 1 TO 10, #21 TAB 0 Refills Prov: Ashley Garcias 08/07/17 Levetiracetam (Keppra) 750 Mg Tab 750 MG PO BID for Control Seizures, #60 TAB 0 Refills Prov: Ashley Garcias 08/07/17 Disposition: 01 DISCHARGE HOME Condition: Stable Ashley Garcias Aug 07, 2017 13:23
[2017-08-07] MEDS ORDERED: SODIUM CHLORIDE 0.9% FLUSH 10 ML FLUSH IVF PRN (13:30)
[2017-08-07] MEDS ORDERED: KETOROLAC TROMETHAMINE 30 MG/ML (IVP) VIAL IV PUSH ONE (13:45)
[2017-08-07 13:47] VITALS: TEMP 98.5
[2017-08-07 14:11] LABS: AUTOMATED NEUTROPHIL # 2.8 TH/MM3 (1.8-7.7); BASOPHIL % 0.3 % (0.0-2.0); EOSINOPHIL # 0.3 TH/MM3 (0-0.4); HEMATOCRIT 39.5 % (35.0-46.0); HEMOGLOBIN 13.5 GM/DL (11.6-15.3); LYMPH % 47.9 % (9.0-44.0); LYMPHOCYTE # 3.3 TH/MM3 (1.0-4.8); MEAN CELL VOLUME 94.3 FL (80.0-100.0); MEAN CORPUSCULAR HEMOGLOBIN 32.1 PG (27.0-34.0); MEAN CORPUSCULAR HGB CONC 34.1 % (32.0-36.0); MEAN PLATELET VOLUME 8.3 FL (7.0-11.0); MONO % 7.1 % (0.0-8.0); MONOCYTE # 0.5 TH/MM3 (0-0.9); NEUT % 39.7 % (16.0-70.0); PLATELET COUNT 231 TH/MM3 (150-450); RED BLOOD COUNT 4.19 MIL/MM3 (4.00-5.30); RED CELL DISTRIBUTION WIDTH 13.5 % (11.6-17.2)
[2017-08-07 14:32] LABS: ALBUMIN 3.6 GM/DL (3.4-5.0); ALKALINE PHOSPHATASE 47 U/L (45-117); ALT (GPT) 20 U/L (10-53); AST (GOT) 16 U/L (15-37); BICARBONATE 28.1 MEQ/L (21.0-32.0); BLOOD UREA NITROGEN 6 MG/DL (7-18); CALCIUM 8.6 MG/DL (8.5-10.1); CHLORIDE 109 MEQ/L (98-107); CREATININE 0.85 MG/DL (0.50-1.00); GLOMERULAR FILTRATION RATE 72 ML/MIN (>89); GLUCOSE,RANDOM 84 MG/DL (74-106); MAGNESIUM 2.1 MG/DL (1.5-2.5); SODIUM (NA) 143 MEQ/L (136-145); TOTAL BILIRUBIN ADULT 0.3 MG/DL (0.2-1.0); TOTAL PROTEIN 6.9 GM/DL (6.4-8.2)
--- NOTE | 2017-08-07 15:37 | RADRPT ---
EXAM DATE/TIME: 08/07/2017 15:06 [facility] COMPARISON: No previous studies available for comparison. INDICATIONS : Possible seizure today. RADIATION DOSE: 56.77 CTDIvol (mGy) MEDICAL HISTORY : Seizures. Hypertension. diabetes SURGICAL HISTORY : Hysterectomy. ENCOUNTER: Initial ACUITY: 1 day PAIN SCALE: 0/10 LOCATION: Bilateral head TECHNIQUE: Multiple contiguous axial images were obtained of the head. Using automated exposure control and adj ustment of the mA and/or kV according to patient size, radiation dose was kept as low as reasonably a chievable to obtain optimal diagnostic quality images. DICOM format image data is available electro nically for review and comparison. FINDINGS: CEREBRUM: The ventricles are normal for age. No evidence of midline shift, mass lesion, hemorrhage or acute in farction. No extra-axial fluid collections are seen. POSTERIOR FOSSA: The cerebellum and brainstem are intact. The 4th ventricle is midline. The cerebellopontine angle i s unremarkable. EXTRACRANIAL: The visualized portion of the orbits is intact. SKULL: The calvaria is intact. No evidence of skull fracture. CONCLUSION: 1. No acute intracranial abnormality. Tommy Chen MD on August 07, 2017 at 15:34 Board Certified Radiologist. This report was verified electronically.
[2017-08-07 16:06] LABS: BILIRUBIN, URINE NEG (NEG); BLOOD, URINE NEG (NEG); GLUCOSE,URINE NEG (NEG); KETONE, URINE NEG (NEG); NITRITE,URINE NEG (NEG); SQUAMOUS EPITHELIAL CELL URINE <1 /hpf (0-5); URINE COLOR LIGHT-YELLOW (YELLW/STRAW); URINE LEUKOCYTE ESTERASE NEG (NEG)
[2017-08-07] MEDS ORDERED: KEPP750T PO (16:13)
[2017-08-07] MEDS ORDERED: DICL50TA PO (16:13)
--- NOTE | 2017-08-07 21:10 | EKG ---
Date Performed: 08/07/2017 Time Performed: 14:13:33 PTAGE: 47 years EKG: Sinus rhythm T-WAVE ABNORMALITY, CONSIDER ANTEROLATERAL ISCHEMIA ABNORMAL ECG PREVIOUS TRACING : 08/07/2017 14.07 No significant change from previous tracing noted. DOCTOR: Erik Cruz Interpretating Date/Time 08/13/2017 07:00:41
== END 2017-08-07 17:37 | disposition home or self-care (01) ==
LOC: NEPC 12:50
DX: G40.909 Epilepsy, unspecified, not intractable, without status epilepticus (principal); I10 Essential (primary) hypertension; Z79.899 Other long term (current) drug therapy
CPT/HCPCS: 70450; 80053; 80164; 80307; 81001; 83735; 85025; 93005; 96374; 99285; J1885; J7030

== ENCOUNTER 2017-08-24 18:34 | Emergency (ER) | payer MEDICARE, OTHER ==
[~2017-08-24] VITALS: Ht 165.1 cm; Wt 74.5 kg
[~2017-08-24 18:34] MED LIST changes: +DICL50TA PO; +KEPP750T PO
[2017-08-24 18:37] VITALS: BP 120/59; PULSE 81; RESP 14; TEMP 99.1; O2SAT 98
[2017-08-24] MEDS ORDERED: PROMETHAZINE INJ 25 MG/ML VIAL IM ONE (20:15)
--- NOTE | 2017-08-24 20:23 | PD ---
HPI Chief Complaint: Fall Time Seen by Provider: 20:21 Travel History International Travel<30 days: No Contact w/Intl Traveler<30days: No Traveled to known affect area: No History of Present Illness HPI 47-year-old white female presents to emergency Department with complaints of lower back pain. Patient states that she had stepped in a hole falling back against a stump twisting her back. Patient states the pain is severe. Some radiation into her right hip. Pain is worse with movement area no alleviating factors. No injury to her head, neck or upper back. PFSH Past Medical History Depression: Yes Cancer: No Cardiac Catheterization: Yes Cardiovascular Problems: Yes ([place], HTN) Chest Pain: No Diabetes: Yes Diminished Hearing: No Gastrointestinal Disorders: No Glaucoma: No Hepatitis: No Hiatal Hernia: No Hypertension: Yes Respiratory: Yes (asthma, COPD) Integumentary: No Seizures: Yes Thyroid Disease: No Ectopic : Yes Ovarian Cysts: Yes Past Surgical History Appendectomy: Yes Cholecystectomy: Yes Ear Surgery: Yes Hysterectomy: Yes Social History Alcohol Use: No Tobacco Use: Yes Substance Use: No Allergies-Medications (Allergen,Severity, Reaction): Coded Allergies: No Known Allergies (Unverified , 08/24/17) Reported Meds & Prescriptions Reported Meds & Active Scripts Active [place] (Hydrocodone-Acetaminophen) 5 Mg-325 Mg Tab 1 Tab PO Q6H PRN Robaxin (Methocarbamol) 500 Mg Tab 1,000 Mg PO TID [address] (Diclofenac Sodium) 75 Mg Tabdr 75 Mg PO BID Keppra (Levetiracetam) 750 Mg Tab 750 Mg PO BID Reported Trazodone (Trazodone HCl) 50 Mg Tab 50 Mg PO HS Spironolactone 25 Mg Tab 25 Mg PO DAILY Pantoprazole (Pantoprazole Sodium) 40 Mg Tab 40 Mg PO DAILY Metoprolol Tartrate 25 Mg Tab 25 Mg PO BID Incruse Ellipta Inh (Umeclidinium [place] Inh) 0.0625 Mg/Act Inh 62.5 Mcg INH DAILY Hydroxyzine HCl 10 Mg Tab 10 Mg PO TID PRN Gabapentin 600 Mg Tab 600 Mg PO TID Fluoxetine (Fluoxetine HCl) 40 Mg Cap 40 Cap PO DAILY Divalproex DR (Divalproex Sodium) 500 Mg Tabdr 500 Mg PO BID Buspirone (Buspirone HCl) 10 Mg Tab 10 Mg PO TID Baclofen 10 Mg Tab 10 Mg PO Q8HR Amlodipine (Amlodipine Besylate) 5 Mg Tab 5 Mg PO DAILY Review of Systems General / Constitutional: No: Fever Eyes: No: Visual changes HENT: No: Headaches Cardiovascular: No: Chest Pain or Discomfort Respiratory: No: Shortness of Breath Gastrointestinal: No: Abdominal Pain Genitourinary: No: Dysuria Musculoskeletal: Positive: Limited ROM, Cramping, Pain Skin: No Rash Neurologic: No: Weakness Psychiatric: No: Depression Endocrine: No: Polydipsia Hematologic/Lymphatic: No: Easy Bruising Physical Exam Narrative GENERAL: Well-developed, well-nourished in no apparent distress. Nontoxic appearing. HEAD: Normocephalic, atraumatic. EYES: Pupils equal round and reactive. Extraocular motions intact. No scleral icterus. No injection or drainage. ENT: Nose clear. Throat without erythema, tonsillar hypertrophy or exudate. Uvula midline. Airway patent. NECK: Trachea midline. Supple, nontender, moves head freely. No central bony tenderness or spasm. CARDIOVASCULAR: Regular rate and rhythm without murmurs, gallops, or rubs. RESPIRATORY: Clear to auscultation. Breath sounds equal bilaterally. No wheezes , rales, or rhonchi. GASTROINTESTINAL: Abdomen soft, non-tender, nondistended. No hepato-splenomegaly , or palpable masses. No guarding. EXTREMITIES: No clubbing, cyanosis, or edema. No joint tenderness. BACK: No central bony tenderness to palpation of dorsal lumbar spine. Patient has right paralumbar tenderness. No saddle anesthesia. Without deformity. No flank tenderness. NEUROLOGICAL: Awake, alert and oriented x 3 .Cranial nerves grossly intact. Motor and sensory grossly within normal limits. Normal speech. Data Data Last Documented VS Vital Signs Date Time Temp Pulse Resp B/P (MAP) Pulse Ox O2 Delivery O2 Flow Rate FiO2 08/24/17 18:37 99.1 81 14 120/59 (79) 98 Orders Orders Spine, Lumbar - Ltd (Ap & Lat) (08/24/17 20:07) Urinalysis - C+S If Indicated (08/24/17 20:07) Fentanyl Inj (Fentanyl Inj) (08/24/17 20:15) Promethazine Inj (Phenergan Inj) (08/24/17 20:15) Ed Discharge Order (08/24/17 23:39) Labs Laboratory Tests Test 08/24/17 21:55 Urine Color LIGHT-YELLOW Urine Turbidity CLEAR Urine pH 6.5 Urine Specific [place] 1.003 Urine Protein NEG mg/dL Urine Glucose (UA) NEG mg/dL Urine Ketones NEG mg/dL Urine Occult Blood NEG Urine Nitrite NEG Urine Bilirubin NEG Urine Urobilinogen LESS THAN 2.0 MG/DL Urine Leukocyte Esterase NEG Urine RBC LESS THAN 1 /hpf Urine WBC LESS THAN 1 /hpf Urine Squamous Epithelial Cells <1 /hpf Microscopic Urinalysis Comment CULT NOT INDICATED MDM Medical Decision Making Medical Screen Exam Complete: Yes Emergency Medical Condition: Yes Medical Record Reviewed: Yes Interpretation(s) Laboratory Tests Test 08/24/17 21:55 Urine Color LIGHT-YELLOW Urine Turbidity CLEAR Urine pH 6.5 Urine Specific [place] 1.003 Urine Protein NEG mg/dL Urine Glucose (UA) NEG mg/dL Urine Ketones NEG mg/dL Urine Occult Blood NEG Urine Nitrite NEG Urine Bilirubin NEG Urine Urobilinogen LESS THAN 2.0 MG/DL Urine Leukocyte Esterase NEG Urine RBC LESS THAN 1 /hpf Urine WBC LESS THAN 1 /hpf Urine Squamous Epithelial Cells <1 /hpf Microscopic Urinalysis Comment CULT NOT INDICATED Last 24 hours Impressions Lumbar Spine X-Ray 08/24/172006 Signed Impressions: Service Date/Time: Thursday, August 24, 2017 20:26 - CONCLUSION: Degenerative changes L5-S1. No fracture. Adriel Rico MD Differential Diagnosis MDM: High Differential diagnoses: Fracture, sprain, strain, dislocation, contusion, neurovascular injury Narrative Course Patient's given 50 g of fentanyl IM and Phenergan 25 mg IM. X-rays negative for bony injury. UA is negative. This is back contusion, fall Diagnosis Primary Impression: back contusion Additional Impression: fall Patient Instructions: General Instructions, Narcotic given in the ED Departure Forms: Tests/Procedures, Work Release Special Instructions: No work 3 days. Additional Instructions: Rest. Ice for the next 3 days followed by heat . [place],Robaxin and Voltaren. Follow-up with a primary care doctor in one week. Return to the ER for emergencies. Med/Other Pt SpecificInfo: Prescription(s) given Scripts Hydrocodone-Acetaminophen ([place]) 5 Mg-325 Mg Tab 1 TAB PO Q6H Y for PAIN, #12 TAB 0 Refills Prov: Ai Howard MD 08/24/17 Methocarbamol (Robaxin) 500 Mg Tab 1000 MG PO TID for Muscle Spasm for 10 Days, TAB 0 Refills Prov: Ai Howard MD 08/24/[address] (Diclofenac Sodium DR) 75 Mg Tabdr 75 MG PO BID, #20 TAB 0 Refills Prov: Ai Howard MD 08/24/17 Disposition: 01 DISCHARGE HOME Condition: Stable Trav Pederson Aug 24, 2017 20:22
--- NOTE | 2017-08-24 20:40 | RADRPT ---
EXAM DATE/TIME: 08/24/2017 20:26 [facility] COMPARISON: No previous studies available for comparison. INDICATIONS : Back pain, hurt lifting up heavy object. MEDICAL HISTORY : None. SURGICAL HISTORY : None. ENCOUNTER: Initial ACUITY: 1 day PAIN SCORE: 7/10 LOCATION: Bilateral back FINDINGS: Two view examination was performed. There are five non-rib bearing vertebral bodies. The vertebral bodies are in normal alignment without evidence of subluxation. Minimal levo scoliosis. Degenerative disease at L5-S1. The pedicles are intact. Bony mineralization is normal. No fracture is identifie d. CONCLUSION: Degenerative changes L5-S1. No fracture. Adriel Rico MD on August 24, 2017 at 20:37 Board Certified Radiologist. This report was verified electronically.
[2017-08-24 22:09] LABS: BILIRUBIN, URINE NEG (NEG); BLOOD, URINE NEG (NEG); GLUCOSE,URINE NEG (NEG); KETONE, URINE NEG (NEG); NITRITE,URINE NEG (NEG); PH, URINE 6.5 (5.0-8.5); SQUAMOUS EPITHELIAL CELL URINE <1 /hpf (0-5); URINE COLOR LIGHT-YELLOW (YELLW/STRAW); URINE LEUKOCYTE ESTERASE NEG (NEG)
[2017-08-24] MEDS ORDERED: ROBA500T PO (23:38)
[2017-08-24] MEDS ORDERED: DICL75TA PO (23:38)
[2017-08-24] MEDS ORDERED: NORC5TAB PO (23:38)
== END 2017-08-25 00:02 | disposition home or self-care (01) ==
LOC: NEPD 18:34
DX: S20.229A Contusion of unspecified back wall of thorax, initial encounter (principal); I10 Essential (primary) hypertension; W17.2XXA Fall into hole, initial encounter; Z72.0 Tobacco use
CPT/HCPCS: 72100; 81001; 96372; 99284; J2550; J3010